=== PATIENT | male | born 1960 | race African-American/Black ===

== ENCOUNTER 2023-12-16 15:15 | Emergency (ER) | payer BC, MEDICARE, SELFPAY ==
--- NOTE | 2023-12-16 15:17 | ED.GENMED ---
History of Present Illness
General
Chief Complaint: Breathing Problem
Source: patient and ambulance crew
Time Seen by Provider: 12/16/23 15:16
History of Present Illness
History of Present Illness:
3:17 PM initial history taken from medic who states that patient reportedly had an asthma flare while he was driving. He pulled over using his [employer] and called 911. Upon their arrival, patient was noted to be 'normal' with a tach to the 100% and
minimally increased work of breathing. He elected to come to the hospital to get 'checked out'. Here in the ER, patient is very comfortable. He states that he started to feel short of breath like a typical asthma flare while he was driving. He
notes that he has been having a cough for the last week or so and notes increasing congestion that he feels is related to allergies. He denies fever, chills, nausea, vomiting. When asked about chest pain he states that he has 'constant' central
discomfort for years without a change today. This is without radiation, exacerbating, relieving factors. Patient denies abdominal pain, recent immobilization, recent trauma, leg swelling, or other complaints.
Past History
Past History
ED Past Medical History: Other (Asthma, [id number] diabetes, hypercholesterolemia)
ED Past Surgical History: Orthopedic
Social History
Tobacco: Non-smoker
Living: with family
Phy Exam
Physical Exam
Physical Exam:
GENERAL: Alert , in no apparent distress
EYE: pupils equal and reactive
NECK: Supple, no significant adenopathy.
ENT: o/p clr, mmm, no stridor, no drool.
CARDIAC: Regular rate and rhythm .
LUNGS: Clear breath sounds bilaterally, no acute respiratory distress, no wheezes/rales/rhonchi, speaks in full sentences easily, no retractions
ABDOMEN: Soft, without focal tenderness, no r/g, no cvat
NEUROLOGICAL: Alert and oriented, no focal neuro deficits
SKIN: Warm and dry, skin intact.
MUSCULOSKELETAL: No edema, well perfused.
PSYCH: Normal and appropriate interaction.
Scores
Heart Failure Risk
Heart Failure Risk Score: Not Applicable
Course
Orders/Labs/Results
Orders:
Orders
12/16/23 15:17
Electrocardiogram (*1) Urgent
Reason for Study: Other
Other Reason for Exam: Respiratory Distress
EKG- Treatment ONCE
CR Chest - 2 Views Urgent
Comment:
Reason For Exam: respiratory distress
12/16/23 15:45
Complete Blood Count/With Diff Urgent
12/16/23 16:13
COVID-19 Antigen Urgent
Source: Nasal Swab
Comprehensive Metabolic Panel Urgent
NT-proBNP Urgent
Troponin I Urgent
Influenza A+B Rapid Molecular Urgent
[facility] Source: Nasal Swab
Specimen Description:
Abnormal Lab Results
12/16/23 12/16/23
15:45 16:13
WBC 4.3 L 10^3/uL
(4.8-10.8)
MCV 78.7 L fL
(80.0-94.0)
MPV 11.8 H fL
(7.4-10.4)
Chloride 108 H mmol/L
(98-107)
Carbon Dioxide 20 L mmol/L
(22-30)
Glucose 161 H mg/dl
(70-99)
12/16/23 15:45
12/16/23 16:13
Vital Signs
Initial and Last Documented VS:
Initial Vital Signs
BP Pulse Ox
140/94 100
12/16/23 15:18 12/16/23 15:18
Last Documented Vital Signs
Temp Pulse Resp BP Pulse Ox
98.9 F 77 24 124/81 100
12/16/23 15:23 12/16/23 17:15 12/16/23 17:15 12/16/23 17:00 12/16/23 17:15
*Critical Care Note
Total Time (30-74mins, 75-104mins- exclusive of procedures): Not Applicable
Update Note
Update Note:
Patient presents to the Emergency Department with ___dyspnea
Number and Complexity of Problems Addressed at the Encounter
� Chronic conditions affecting care:
� Acute Exacerbation and/or Progression of Chronic Illness:
� Differential Diagnosis includes: But not limited to asthma exacerbation, pneumonia, PE, pericarditis, ACS, heart failure, etc. etc.
Amount and/or Complexity of Data to be Reviewed and Analyzed
� I performed an independent evaluation of and my interpretation is:
EKG: Read by me, normal sinus rhythm, normal rate, no acute ischemia
CT:
Xrays: Chest x-ray read by me unremarkable no infiltrate no cardiomegaly
Laboratory Studies: Generally unremarkable, mild hyperglycemia noted, COVID flu negative
Other:
� Review of other/old records reveals: None available here
� Clinical information was obtained by an independent historian: Daughter who is at bedside
� Prescriptions/Medications Considered but not given: Would consider giving steroids given likely asthma exacerbation however patient reports recent steroids causing hyperglycemia that was difficult to control at home.
� Further testing considered but not performed:
Risk of Complications and/or Morbidity or Mortality of Patient Management
� Social determinants of health affecting care:
� Discussion with other providers (PCP, Hospitalists, Consultants, etc):
� Escalation of care including admission/observation vs risk of discharge considered: 6:20 PM patient extremely well-appearing, speaks in full sentences, pulse ox 100%. Highly doubt ACS, PE, pneumonia, etc. Discussed with
patient importance of follow-up and reasons return to the ER. I will also refill his medications.
ED Attending Note
-
Portions of this chart may have been created with voice recognition software.� Occasional wrong word or��sound alike� substitutions may have occurred due to the inherent limitations of voice recognition software.
Discharge Plan
Departure
Patient Disposition: Home (Routine Discharge)
Date of Disposition: 12/16/23
Time of Disposition: 18:17
Patient with high blood pressure during this ER visit?: Yes
Condition: Good
Discharge Problem:
Asthma
Instructions: Asthma, Adult (DC), BLOOD PRESSURE
Prescriptions:
New
albuterol sulfate 90 mcg/actuation HFA aerosol inhaler
2 puff inhalation Q6H PRN (Reason: shortness of breath or wheezing) Qty: 8.5 0RF
fluticasone propion-salmeterol [Advair Diskus] 500-50 mcg/dose blister with device
1 inh inhalation BID Qty: 60 0RF
Referrals:
Nidhi Fairchild MD [Family Provider] - Tomorrow
Activity Restrictions/Additional Instructions:
IF YOU DEVELOP SHORTNESS OF BREATH, CHEST PAIN OR PRESSURE, FEVER, VOMITING, DIZZINESS, SWELLING, BLEEDING, GET WORSE, DO NOT GET BETTER, OR OTHER WORRISOME SIGNS, PLEASE RETURN TO THE ER IMMEDIATELY.
Interventions
Interventions:
*Risk Screen - Suicide Last Done: 12/16/23 15:23
*General Assessment Last Done: 12/16/23 15:23
*Neglect/Abuse Screening Last Done: 12/16/23 15:23
ED- Fall Risk Assessment Last Done: 12/16/23 15:35
*ED COVID-19 Vaccine History Last Done: 12/16/23 15:23
ED- Cardiac Assessment Last Done: 12/16/23 15:35
ED- Pulmonary Assessment Last Done: 12/16/23 15:35
Discharge Date and Time
Print Language: ARMENIAN
[2023-12-16 15:18] VITALS: BP 140/94
[2023-12-16 15:23] VITALS: BP 140/94; BMI 26.2
[2023-12-16 16:00] VITALS: BP 121/81
[2023-12-16 16:02] LABS: % Basophils 0.5 % (0-2); % Eosinophils 1.4 % (0-6); % Immature Granulocytes 0.2 % (0-0.5); % Monocytes 8.2 % (1.7-9.3); % Neutrophils 50.7 % (42.2-75.2); Absolute Eosinophils 0.1 10^3/uL (0-0.7); Absolute Lymphocytes 1.7 10^3/uL (1.2-3.4); Absolute Monocytes 0.4 10^3/uL (0.1-0.6); Absolute Neutrophils 2.2 10^3/uL (1.4-6.5); Hematocrit 41.4 % (39.0-52.0); Hemoglobin 14.2 g/dL (13.0-18.0); Mean Corp Hgb Conc. 34.3 g/dL (33.0-37.0); Mean Corpuscular Volume 78.7 fL (80.0-94.0); Mean Platelet Volume 11.8 fL (7.4-10.4); Nucleated Red Blood Cells % 0 % (-); Platelet Count 144 10^3/uL (130-400); Red Blood Cell Count 5.26 10^6/uL (4.70-6.10); Red Cell Dist. Width 14.4 % (11.5-14.5); White Blood Cell Count 4.3 10^3/uL (4.8-10.8)
[2023-12-16 16:42] LABS: ALT (SGPT) 21 U/L (0-50); AST (SGOT) 26 U/L (17-59); Albumin 3.9 g/dl (3.5-5.0); Alkaline Phosphatase 60 U/L (38-126); Blood Urea Nitrogen 16 mg/dl (9-20); Calcium 9.6 mg/dl (8.4-10.2); Carbon Dioxide 20 mmol/L (22-30); Chloride 108 mmol/L (98-107); Estimated Creatinine Clearance 99 ml/min; Glucose 161 mg/dl (70-99); Potassium 3.7 mmol/L (3.5-5.1); Sodium 138 mmol/L (135-145); Total Bilirubin 0.5 mg/dl (0.2-1.3); Total Protein 6.8 g/dl (6.3-8.2); eGFR > 60.00
[2023-12-16 16:52] LABS: NT-proBNP < 20.0 pg/ml; Troponin I < 0.012 ng/ml
[2023-12-16 16:53] LABS: COVID-19 Antigen Negative (Negative)
[2023-12-16 17:00] VITALS: BP 124/81
[2023-12-16 18:00] VITALS: BP 128/79
== END 2023-12-16 18:54 | disposition home or self-care (01) ==
LOC: EMR 15:15
PROVIDERS: EMERGENCY PHYSICIAN Emergency Medicine; FAMILY PHYSICIAN Family Medicine
DX: J45.901 Unspecified asthma with (acute) exacerbation (principal); Z11.52 Encounter for screening for COVID-19; R07.89 Other chest pain; R03.0 Elevated blood-pressure reading, without diagnosis of hypertension; E11.9 Type 2 diabetes mellitus without complications; E78.00 Pure hypercholesterolemia, unspecified; Z88.0 Allergy status to penicillin
CPT/HCPCS: 99283; 71046; 80053; 83880; 84484; 85025; 87502; 87811; 93005